=== PATIENT | female | born 1945 | race American Indian/Alaskan Native ===

== ENCOUNTER 2017-10-31 13:17 | Observation (INO) | payer MEDICARE ==
[2017-10-31] MEDS ORDERED: NACL 0.9% 1000 ML 1,000 ML IV ONE (13:39)
[2017-10-31 14:49] LABS: Basophils % (Auto) 0.1 % (0.0-1.8); Eosinophils # (Auto) 0.1 K/mm3 (0.0-0.4); Eosinophils % (Auto) 0.4 % (0.0-4.3); Hematocrit 32.4 % (30.3-42.9); Hemoglobin 10.2 gm/dl (10.1-14.3); Lymphocytes # (Auto) 1.9 K/mm3 (1.2-5.4); Lymphocytes % (Auto) 13.2 % (13.4-35.0); Mean Corpuscular HGB Conc 32 % (30-34); Mean Corpuscular Hemoglobin 28 pg (28-32); Mean Corpuscular Volume 88 fl (79-97); Monocytes # (Auto) 0.6 K/mm3 (0.0-0.8); Monocytes % (Auto) 4.1 % (0.0-7.3); Platelet Count 296 K/mm3 (140-440); Red Blood Count 3.69 M/mm3 (3.65-5.03); Red Cell Distribution Width 14.9 % (13.2-15.2)
[2017-10-31 14:55] LABS: Alanine Aminotransferase 11 units/L (7-56); Albumin 3.8 g/dL (3.9-5); BUN/Creatinine Ratio 30; Blood Urea Nitrogen 27 mg/dL (7-17); Calcium 9.8 mg/dL (8.4-10.2); Hemolysis Index 7; Lipase 21 units/L (13-60)
[2017-10-31 15:03] LABS: INR 0.93 (0.87-1.13)
[2017-10-31 15:04] LABS: Partial Thromboplastin Time 24.2 Sec. (24.2-36.6)
--- NOTE | 2017-10-31 16:20 | Emergency Department Report ---
HPI - General Chief Complaint: GI Bleed Time Seen by Provider: 10/31/17 15:55 - HPI HPI: 72-year-old female presents to the emergency department with a complaint of 4 episodes of rectal bleeding with bowel movements since 9 AM this morning. It is associated with some lower abdominal discomfort. Patient says that she was feeling slightly weak and/or dizzy when she was standing. The stool looked dark at first but has since become more red. She has not taken anything for her symptoms. Presentation. She has a past medical history of arthritis, diabetes, hypertension, hyperlipidemia and does have one previous episode of GI bleeding from about 14 years ago that required a blood transfusion at that time. The patient last had a colonoscopy about 2 years ago with [facility]. Patient also admits to taking a lot of meloxicam over the past month secondary to her arthritis. She denies any fever , chest pain, shortness of breath. No recent travel or sick contacts at home. ED Past Medical Hx - Past Medical History Hx Hypertension: Yes Hx Diabetes: Yes (1994) Hx Arthritis: Yes Additional medical history: elevated cholesterol,rectal bleed with transfusion r /t bleeding polyps - Surgical History Additional Surgical History: hysterectomy - Social History Smoking Status: Never Smoker Substance Use Type: None - Medications Home Medications: Home Medications Medication Instructions Recorded Confirmed Last Taken Type Insulin Detemir [Levemir Flextouch] 30 unit SQ QHS 06/22/15 10/31/17 06/23/15 History metFORMIN [Glucophage] 850 mg PO BID 06/22/15 10/31/17 10/31/17 History Aspirin [Adult Low Dose Aspirin EC] 81 mg PO QDAY 10/31/17 10/31/17 10/31/17 History Atorvastatin Calcium [Lipitor] 80 mg PO QHS 10/31/17 10/31/17 Unknown History Brimonidine Tartrate/Timolol 1 drop OU BID 10/31/17 10/31/17 Unknown History [Combigan 0.2%-0.5% Eye Drops] Insulin Lispro [Humalog Kwikpen 80 unit SQ TID 10/31/17 10/31/17 Unknown History U-100] Latanoprost 0.005% [Xalatan 0.005%] 1 drop OU QPM 10/31/17 10/31/17 Unknown History Lisinopril [Zestril TAB] 2.5 mg PO QDAY 10/31/17 10/31/17 10/31/17 History Meloxicam [Mobic] 7.5 mg PO QDAY 10/31/17 10/31/17 10/31/17 History ED Review of Systems ROS: Stated complaint: RECTAL BLEEDING Other details as noted in HPI Comment: All other systems reviewed and negative Constitutional: denies: chills, fever Eyes: denies: eye pain, eye discharge, vision change ENT: denies: ear pain, throat pain Respiratory: denies: cough, shortness of breath, wheezing Cardiovascular: denies: chest pain, palpitations Gastrointestinal: abdominal pain, other (rectal bleeding) Genitourinary: denies: urgency, dysuria, discharge Musculoskeletal: denies: back pain, joint swelling, arthralgia Skin: denies: rash, lesions Neurological: denies: headache, numbness Physical Exam - Physical Exam Vital Signs: Vital Signs 10/31/17 13:34 Temperature 97.5 F L Pulse Rate 110 H Respiratory 18 Rate Blood Pressure 85/51 O2 Sat by Pulse 99 Oximetry Physical Exam: GENERAL: The patient is well-developed well-nourished. HENT: Normocephalic. Atraumatic. Patient has moist mucous membranes. EYES: Extraocular motions are intact. Pupils equal reactive to light bilaterally. NECK: Supple. Trachea is midline. CHEST/LUNGS: Clear to auscultation. There is no respiratory distress noted. HEART/CARDIOVASCULAR: Regular. There is no tachycardia. There is no murmur. ABDOMEN: Abdomen is soft. Lower abdominal tenderness to palpation. No guarding. Patient has normal bowel sounds. There is no abdominal distention. SKIN: Skin is warm and dry. RECTAL: No visible external hemorrhoids. There is a small amount of gross blood seen when obtaining stool that is confirmed on guaiac testing. NEURO: The patient is awake, alert, and oriented. The patient is cooperative. The patient has no focal neurologic deficits. The patient has normal speech. MUSCULOSKELETAL: There is no tenderness or deformity. There is no limitation range of motion. There is no evidence of acute injury. ED Course Vital Signs 10/31/17 13:34 Temperature 97.5 F L Pulse Rate 110 H Respiratory 18 Rate Blood Pressure 85/51 O2 Sat by Pulse 99 Oximetry - Consultations Consultation #1: I spoke with the form maker plaster trousseau [facility], Dr. turpin, who recommends that the patient be observed overnight and they will do an EGD tomorrow. Patient will be nothing by mouth after midnight and will be started on Protonix 40 mg twice a day. 10/31/17 19:52 ED Medical Decision Making - Lab Data Result diagrams: 10/31/17 14:09 10/31/17 14:09 - EKG Data -: EKG Interpreted by Me EKG shows normal: sinus rhythm, axis (left axis deviation), intervals, QRS complexes (RVH, Q waves to the inferior leads), ST-T waves Rate: normal - EKG Data When compared to previous EKG there are: previous EKG unavailable Interpretation: other (Sinus, left axis deviation, RVH, q waves to inferior leads) - Radiology Data Radiology results: report reviewed PROCEDURE: CT ABDOMEN PELVIS W CON TECHNIQUE: Computerized axial tomography of the abdomen and pelvis was performed after the IV injection of iodinated nonionic contrast. HISTORY: Abd pain COMPARISON: No prior studies are available for comparison. FINDINGS: Lower Lung wilkinson: Small amount of scattered nonspecific ground-glass density visualized. Calcified granuloma seen in the right lower lobe. No focal consolidations effusions or noncalcified masses are seen. Upper Abdomen: The liver, the gallbladder, the adrenal glands, the pancreas and spleen are unremarkable. Kidneys, Ureters and Urinary bladder: No abnormalities are seen. Retroperitoneum: Atherosclerotic changes are seen in the abdominal aorta. No aneurysm is visualized. Nonspecific subcentimeter lymph nodes are seen in the retroperitoneum. No pathologically enlarged lymph nodes are identified. Bowel: Mild to moderate diverticulosis seen left side of the colon without evidence of diverticulitis. Mild diverticulosis seen in the transverse colon. Bowel loops otherwise unremarkable. Normal-appearing appendix visualized in the right lower quadrant directed medially. Reproductive organs: Uterus is surgically absent. No abnormal adnexal masses are seen. Other: There sclerosis and subchondral cyst formation involving SI joints bilaterally suggesting osteoarthritis. No acute bony abnormalities are seen. IMPRESSION: Small amount of nonspecific ground-glass density seen in the lung bases. Mild to moderate colonic diverticulosis without evidence of diverticulitis. Prior hysterectomy. Degenerative changes SI joints. No other abnormalities are seen. Transcribed By: WILL Dictated By: KTIA COON MD Electronically Authenticated By: KITA COON MD Signed Date/Time: 10/31/17 861 - Medical Decision Making Patient presented with 4 episodes of rectal bleeding with bowel movements starting some morning. She says it started off dark black but then turned red. She also has been using meloxicam a lot over the past month for osteoarthritis. Her hemoglobin is 10.2 which does show some anemia but not at a level for transfusion as of yet. The rest of blood work is mostly unremarkable. CT scan of the abdomen and pelvis with IV contrast shows mild to moderate colonic diverticulosis without diverticulitis. Gastroenterology consulted and contacted and they will see the patient tomorrow for probable EGD. Patient nothing by mouth after midnight and on IV Protonix twice daily. Accepted for admission by the hospitalist, Dr. Newman. - Differential Diagnosis diverticulosis, malignancy, hemorrhoids, diverticulitis Critical Care Time: No Critical care attestation.: If time is entered above; I have spent that time in minutes in the direct care of this critically ill patient, excluding procedure time. ED Disposition Clinical Impression: NSAID long-term use GI bleed Qualifiers: GI bleed type/associated pathology: unspecified gastrointestinal hemorrhage type Qualified Code(s): K92.2 - Gastrointestinal hemorrhage, unspecified Anemia Qualifiers: Anemia type: unspecified type Qualified Code(s): D64.9 - Anemia, unspecified Diverticulosis of colon Qualifiers: Diverticulosis bleeding: diverticulosis with bleeding Qualified Code(s): K57.31 - Diverticulosis of large intestine without perforation or abscess with bleeding Disposition: 09 OP ADMIT IP TO THIS HOSP Is pt being admited?: Yes Condition: Fair Referrals: PRIMARY CAREMD [Primary Care Provider] - 3-5 Days Forms: Accompanied Note Time of Disposition: 19:37
--- NOTE | 2017-10-31 19:08 | Cat Scan Report ---
FINAL REPORT PROCEDURE: CT ABDOMEN PELVIS W CON TECHNIQUE: Computerized axial tomography of the abdomen and pelvis was performed after the IV injection of iodinated nonionic contrast. HISTORY: Abd pain COMPARISON: No prior studies are available for comparison. FINDINGS: Lower Lung wilkinson: Small amount of scattered nonspecific ground-glass density visualized. Calcified granuloma seen in the right lower lobe. No focal consolidations effusions or noncalcified masses are seen. Upper Abdomen: The liver, the gallbladder, the adrenal glands, the pancreas and spleen are unremarkable. Kidneys, Ureters and Urinary bladder: No abnormalities are seen. Retroperitoneum: Atherosclerotic changes are seen in the abdominal aorta. No aneurysm is visualized. Nonspecific subcentimeter lymph nodes are seen in the retroperitoneum. No pathologically enlarged lymph nodes are identified. Bowel: Mild to moderate diverticulosis seen left side of the colon without evidence of diverticulitis. Mild diverticulosis seen in the transverse colon. Bowel loops otherwise unremarkable. Normal-appearing appendix visualized in the right lower quadrant directed medially. Reproductive organs: Uterus is surgically absent. No abnormal adnexal masses are seen. Other: There sclerosis and subchondral cyst formation involving SI joints bilaterally suggesting osteoarthritis. No acute bony abnormalities are seen. IMPRESSION: Small amount of nonspecific ground-glass density seen in the lung bases. Mild to moderate colonic diverticulosis without evidence of diverticulitis. Prior hysterectomy. Degenerative changes SI joints. No other abnormalities are seen.
[2017-10-31] MEDS: PROTONIX IV SCH (20:21)
--- NOTE | 2017-10-31 23:04 | History and Physical Report ---
History of Present Illness Date of examination: 10/31/17 Date of admission: 10/31/17 19:37 Chief complaint: Chief complaint Bright blood per rectum since a.m. History of present illness: History of present illness: 72-year-old black female presents to the emergency department with bright red blood per rectum since morning. Started around 9 AM. Had similar episode over 14 years ago and was diagnosed with diverticulosis. Patient does have abdominal discomfort and has been feeling weak and dizzy when she was standing. No exacerbating or relieving factors. Did not take any NSAID. No shortness of breath. Past Medical History Hx Hypertension: Yes Hx Diabetes: Yes (1994) Hx Arthritis: Yes Additional medical history: elevated cholesterol,rectal bleed with transfusion r /t bleeding polyps Surgical History Additional Surgical History: hysterectomy Social History Smoking Status: Never Smoker Substance Use Type: None Family history Hypertension Medications Home Medications: Home Medications Medication Instructions Recorded Confirmed Last Taken Type Insulin Detemir [Levemir Flextouch] 30 unit SQ QHS 06/22/15 10/31/17 06/23/15 History metFORMIN [Glucophage] 850 mg PO BID 06/22/15 10/31/17 10/31/17 History Aspirin [Adult Low Dose Aspirin EC] 81 mg PO QDAY 10/31/17 10/31/17 10/31/17 History Atorvastatin Calcium [Lipitor] 80 mg PO QHS 10/31/17 10/31/17 Unknown History Brimonidine Tartrate/Timolol 1 drop OU BID 10/31/17 10/31/17 Unknown History [Combigan 0.2%-0.5% Eye Drops] Insulin Lispro [Humalog Kwikpen 80 unit SQ TID 10/31/17 10/31/17 Unknown History U-100] Latanoprost 0.005% [Xalatan 0.005%] 1 drop OU QPM 10/31/17 10/31/17 Unknown History Lisinopril [Zestril TAB] 2.5 mg PO QDAY 10/31/17 10/31/17 10/31/17 History Meloxicam [Mobic] 7.5 mg PO QDAY 10/31/17 10/31/17 10/31/17 History Review of Systems ROS: Stated complaint: RECTAL BLEEDING Other details as noted in HPI Comment: All other systems reviewed and negative Constitutional: denies: chills, fever Eyes: denies: eye pain, eye discharge, vision change ENT: denies: ear pain, throat pain Respiratory: denies: cough, shortness of breath, wheezing Cardiovascular: denies: chest pain, palpitations Gastrointestinal: abdominal pain, other (rectal bleeding) Genitourinary: denies: urgency, dysuria, discharge Musculoskeletal: denies: back pain, joint swelling, arthralgia Skin: denies: rash, lesions Neurological: denies: headache, numbness Medications and Allergies Allergies Allergy/AdvReac Type Severity Reaction Status Date / Time No Known Allergies Allergy Verified 06/24/15 09:09 Home Medications Medication Instructions Recorded Confirmed Last Taken Type Insulin Detemir [Levemir Flextouch] 30 unit SQ QHS 06/22/15 10/31/17 06/23/15 History metFORMIN [Glucophage] 850 mg PO BID 06/22/15 10/31/17 10/31/17 History Aspirin [Adult Low Dose Aspirin EC] 81 mg PO QDAY 10/31/17 10/31/17 10/31/17 History Atorvastatin Calcium [Lipitor] 80 mg PO QHS 10/31/17 10/31/17 Unknown History Brimonidine Tartrate/Timolol 1 drop OU BID 10/31/17 10/31/17 Unknown History [Combigan 0.2%-0.5% Eye Drops] Insulin Lispro [Humalog Kwikpen 80 unit SQ TIDAC 10/31/17 10/31/17 Unknown History U-100] Latanoprost 0.005% [Xalatan 0.005%] 1 drop OU QPM 10/31/17 10/31/17 Unknown History Lisinopril [Zestril TAB] 2.5 mg PO QDAY 10/31/17 10/31/17 10/31/17 History Meloxicam [Mobic] 7.5 mg PO QDAY 10/31/17 10/31/17 10/31/17 History Active Meds: Active Medications Pantoprazole Sodium (Protonix) 40 mg IV BID [facility] Last Admin: 10/31/17 20:21 Dose: 40 mg Exam - Constitutional Vitals: Temp Pulse Resp BP Pulse Ox 99.1 F 90 18 102/46 98 10/31/17 21:44 10/31/17 21:44 10/31/17 21:44 10/31/17 21:44 10/31/17 21:44 General appearance: Present: no acute distress, well-nourished - EENT Eyes: Present: PERRL ENT: hearing intact, clear oral mucosa - Neck Neck: Present: supple, normal ROM - Respiratory Respiratory effort: normal Respiratory: bilateral: CTA - Cardiovascular Heart rate: 70 Rhythm: regular Heart Sounds: Present: S1 & S2. Absent: rub, click - Extremities Extremities: pulses symmetrical, No edema Peripheral Pulses: within normal limits - Abdominal General gastrointestinal: Present: soft, non-tender, non-distended, normal bowel sounds Female genitourinary: Present: normal - Rectal Rectal Exam: stool bloody - Integumentary Integumentary: Present: clear, warm, dry - Musculoskeletal Musculoskeletal: gait normal, strength equal bilaterally - Psychiatric Psychiatric: appropriate mood/affect, intact judgment & insight - Neurologic Neurologic: CNII-XII intact, moves all extremities - Allied Health Allied health notes reviewed: nursing, case management Results - Labs CBC & Chem 7: 10/31/17 14:09 10/31/17 14:09 Labs: Laboratory Last Values WBC 14.3 K/mm3 (4.5-11.0) H 10/31/17 14:09 RBC 3.69 M/mm3 (3.65-5.03) 10/31/17 14:09 Hgb 10.2 gm/dl (10.1-14.3) 10/31/17 14:09 Hct 32.4 % (30.3-42.9) 10/31/17 14:09 MCV 88 fl (79-97) 10/31/17 14:09 MCH 28 pg (28-32) 10/31/17 14:09 MCHC 32 % (30-34) 10/31/17 14:09 RDW 14.9 % (13.2-15.2) 10/31/17 14:09 Plt Count 296 K/mm3 (140-440) 10/31/17 14:09 Lymph % (Auto) 13.2 % (13.4-35.0) L 10/31/17 14:09 [place] % (Auto) 4.1 % (0.0-7.3) 10/31/17 14:09 Eos % (Auto) 0.4 % (0.0-4.3) 10/31/17 14:09 Baso % (Auto) 0.1 % (0.0-1.8) 10/31/17 14:09 Lymph # 1.9 K/mm3 (1.2-5.4) 10/31/17 14:09 [place] # 0.6 K/mm3 (0.0-0.8) 10/31/17 14:09 Eos # 0.1 K/mm3 (0.0-0.4) 10/31/17 14:09 Baso # 0.0 K/mm3 (0.0-0.1) 10/31/17 14:09 Seg Neutrophils % 82.2 % (40.0-70.0) H 10/31/17 14:09 Seg Neutrophils # 11.8 K/mm3 (1.8-7.7) H 10/31/17 14:09 PT 12.9 Sec. (12.2-14.9) 10/31/17 14:09 INR 0.93 (0.87-1.13) 10/31/17 14:09 APTT 24.2 Sec. (24.2-36.6) 10/31/17 14:09 Sodium 139 mmol/L (137-145) 10/31/17 14:09 Potassium 4.8 mmol/L (3.6-5.0) 10/31/17 14:09 Chloride 101.1 mmol/L (98-107) 10/31/17 14:09 Carbon Dioxide 23 mmol/L (22-30) 10/31/17 14:09 Anion Gap 20 mmol/L 10/31/17 14:09 BUN 27 mg/dL (7-17) H 10/31/17 14:09 Creatinine 0.9 mg/dL (0.7-1.2) 10/31/17 14:09 Estimated GFR > 60 ml/min 10/31/17 14:09 BUN/Creatinine Ratio 30 % 10/31/17 14:09 Glucose 255 mg/dL (65-100) H 10/31/17 14:09 Calcium 9.8 mg/dL (8.4-10.2) 10/31/17 14:09 Total Bilirubin 0.60 mg/dL (0.1-1.2) 10/31/17 14:09 AST 13 units/L (5-40) 10/31/17 14:09 ALT 11 units/L (7-56) 10/31/17 14:09 Alkaline Phosphatase 79 units/L (35-129) 10/31/17 14:09 Total Protein 7.2 g/dL (6.3-8.2) 10/31/17 14:09 Albumin 3.8 g/dL (3.9-5) L 10/31/17 14:09 Albumin/Globulin Ratio 1.1 % 10/31/17 14:09 Lipase 21 units/L (13-60) 10/31/17 14:09 Blood Type O NEGATIVE 10/31/17 14:09 Antibody Screen Negative 10/31/17 14:09 - Imaging and Cardiology EKG: report reviewed (normal sinus rhythm heart rate of 93/m no acute ST-T wave changes) Assessment and Plan Advance Directives: Yes (full code) VTE prophylaxis?: Mechanical Plan of care discussed with patient/family: Yes - Patient Problems (1) Lower GI bleed Current Visit: Yes Status: Acute Plan to address problem: We will keep the patient nothing by mouth GI consult Colonoscopy Transfuse blood if necessary Monitor hemoglobin and hematocrit every 6 hours (2) Insulin dependent diabetes mellitus Current Visit: Yes Status: Acute Plan to address problem: Coverage only Check hemoglobin A1c (3) Hypertension Current Visit: Yes Status: Chronic Qualifiers: Hypertension type: essential hypertension Qualified Code(s): I10 - Essential (primary) hypertension Plan to address problem: Patient on a very small dose of lisinopril. We'll hold it. (4) Glaucoma Current Visit: Yes Status: Chronic Qualifiers: Glaucoma type: open-angle Plan to address problem: Continue Xalatan eyedrops (5) DVT prophylaxis Current Visit: Yes Status: Acute Plan to address problem: On SCDs only
[2017-10-31] MEDS ORDERED: ZOFRAN IV PRN (23:16)
[2017-10-31] MEDS ORDERED: SODIUM CHLORIDE FLUSH SYRINGE 10 ML IV PRN (23:16)
[2017-10-31] MEDS ORDERED: MORPHINE IV PRN (23:16)
[2017-10-31] MEDS ORDERED: NACL 0.9% 1000 ML 1,000 ML IV SCH (23:45)
[2017-11-01 00:08] LABS: Hematocrit 24.6 % (30.3-42.9); Hemoglobin 8.5 gm/dl (10.1-14.3)
[2017-11-01 06:42] LABS: Basophils % (Auto) 0.2 % (0.0-1.8); Eosinophils # (Auto) 0.1 K/mm3 (0.0-0.4); Eosinophils % (Auto) 0.8 % (0.0-4.3); Hematocrit 26.4 % (30.3-42.9); Hemoglobin 8.6 gm/dl (10.1-14.3); Lymphocytes # (Auto) 2.9 K/mm3 (1.2-5.4); Lymphocytes % (Auto) 34.8 % (13.4-35.0); Mean Corpuscular HGB Conc 33 % (30-34); Mean Corpuscular Hemoglobin 28 pg (28-32); Mean Corpuscular Volume 87 fl (79-97); Monocytes # (Auto) 0.5 K/mm3 (0.0-0.8); Monocytes % (Auto) 6.6 % (0.0-7.3); Platelet Count 226 K/mm3 (140-440); Red Blood Count 3.05 M/mm3 (3.65-5.03)
[2017-11-01 07:01] LABS: Alanine Aminotransferase 9 units/L (7-56); Albumin 3.6 g/dL (3.9-5); BUN/Creatinine Ratio 32; Blood Urea Nitrogen 29 mg/dL (7-17); Calcium 9.3 mg/dL (8.4-10.2); Hemolysis Index 7
--- NOTE | 2017-11-01 07:28 | Progress Note ---
Assessment and Plan Assessment and plan: 72-year-old female with past medical history significant for diabetes mellitus, hypertension, glaucoma presented to the emergency department with complaints of passing of bright red blood per rectum, associated with dizziness. patient had similar episodes previously. Lower GI bleeding - Hemoglobin is dropped from 10.2 - 8.6 - We'll continue to monitor, transfuse as needed - CT abdomen showed diverticulosis - GI consulted, EGD/colonoscopy tomorrow - Clear liquid diet for now Insulin-dependent diabetes mellitus - Sliding scale insulin Hypertension - Blood pressure is on the low side of normal, no BP medications needed for now DVT prophylaxis - SCDs because of GI bleeding Disposition - Continue inpatient care, gentle have EGD and colonoscopy tomorrow History Interval history: No nursing issues overnight, dizziness subsided, no active GI bleeding. Hospitalist Physical - Physical exam Narrative exam: Not in cardiopulmonary distress. The patient is obese. Vital signs as documented. Head exam is unremarkable. No scleral icterus . Neck is without jugular venous distension, thyromegaly, or carotid bruits. Lungs are clear to auscultation. Cardiac exam reveals regular rate and Rhythm. First and second heart sounds normal. No murmurs, rubs or gallops. Abdominal exam reveals normal bowel sounds, no masses, no organomegaly and no aortic enlargement. Extremities are nonedematous and both femoral and pedal pulses are normal. 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 No focal weakness. - Constitutional Vitals: Temp Pulse Resp BP Pulse Ox 98.3 F 69 20 113/53 100 11/01/17 02:03 11/01/17 02:03 11/01/17 02:03 11/01/17 02:03 11/01/17 02:03 General appearance: Present: no acute distress, well-nourished Results - Labs CBC & Chem 7: 11/01/17 10:23 11/01/17 05:33 Labs: Laboratory Last Values WBC 8.3 K/mm3 (4.5-11.0) 11/01/17 05:33 RBC 3.05 M/mm3 (3.65-5.03) L 11/01/17 05:33 Hgb 8.6 gm/dl (10.1-14.3) L 11/01/17 05:33 Hct 26.4 % (30.3-42.9) L 11/01/17 05:33 MCV 87 fl (79-97) 11/01/17 05:33 MCH 28 pg (28-32) 11/01/17 05:33 MCHC 33 % (30-34) 11/01/17 05:33 RDW 15.0 % (13.2-15.2) 11/01/17 05:33 Plt Count 226 K/mm3 (140-440) 11/01/17 05:33 Lymph % (Auto) 34.8 % (13.4-35.0) 11/01/17 05:33 [place] % (Auto) 6.6 % (0.0-7.3) 11/01/17 05:33 Eos % (Auto) 0.8 % (0.0-4.3) 11/01/17 05:33 Baso % (Auto) 0.2 % (0.0-1.8) 11/01/17 05:33 Lymph # 2.9 K/mm3 (1.2-5.4) 11/01/17 05:33 [place] # 0.5 K/mm3 (0.0-0.8) 11/01/17 05:33 Eos # 0.1 K/mm3 (0.0-0.4) 11/01/17 05:33 Baso # 0.0 K/mm3 (0.0-0.1) 11/01/17 05:33 Seg Neutrophils % 57.6 % (40.0-70.0) 11/01/17 05:33 Seg Neutrophils # 4.8 K/mm3 (1.8-7.7) 11/01/17 05:33 PT 12.9 Sec. (12.2-14.9) 10/31/17 14:09 INR 0.93 (0.87-1.13) 10/31/17 14:09 APTT 24.2 Sec. (24.2-36.6) 10/31/17 14:09 Sodium 143 mmol/L (137-145) 11/01/17 05:33 Potassium 4.6 mmol/L (3.6-5.0) 11/01/17 05:33 Chloride 104.8 mmol/L (98-107) 11/01/17 05:33 Carbon Dioxide 25 mmol/L (22-30) 11/01/17 05:33 Anion Gap 18 mmol/L 11/01/17 05:33 BUN 29 mg/dL (7-17) H 11/01/17 05:33 Creatinine 0.9 mg/dL (0.7-1.2) 11/01/17 05:33 Estimated GFR > 60 ml/min 11/01/17 05:33 BUN/Creatinine Ratio 32 % 11/01/17 05:33 Glucose 182 mg/dL (65-100) H 11/01/17 05:33 POC Glucose 148 (70-105) H 11/01/17 06:46 Hemoglobin A1c 9.1 % (4-6) H 10/31/17 23:46 Calcium 9.3 mg/dL (8.4-10.2) 11/01/17 05:33 Total Bilirubin 0.30 mg/dL (0.1-1.2) 11/01/17 05:33 AST 11 units/L (5-40) 11/01/17 05:33 ALT 9 units/L (7-56) 11/01/17 05:33 Alkaline Phosphatase 68 units/L (35-129) 11/01/17 05:33 Total Protein 6.0 g/dL (6.3-8.2) L 11/01/17 05:33 Albumin 3.6 g/dL (3.9-5) L 11/01/17 05:33 Albumin/Globulin Ratio 1.5 % 11/01/17 05:33 Lipase 21 units/L (13-60) 10/31/17 14:09 Blood Type O NEGATIVE 10/31/17 14:09 Antibody Screen Negative 10/31/17 14:09 Her hemoglobin dropped from 10.2 yesterday -8.6 this morning
--- NOTE | 2017-11-01 10:03 | Gastroenterology Consultation ---
<KARRIE RODRIGUEZ - Last Filed: 11/01/17 10:11> History of Present Illness - Reason for Consult Consult date: 11/01/17 GI bleed Requesting physician: VICENTA MATSON - History of Present Illness Patient is a 72 y/o female with PMH of arthritis, DM, HTN, HLD, and glaucoma who presented to ED with c/o rectal bleeding with associated weakness and dizziness. She reports multiple BMs yesterday with dark stool at first that later turned to a brighter red bloody color. This morning patient was resting in bed w/o acute distress. Has had no active signs of bleeding since around 4pm yesterday. No hematemesis. Admits to some mild lower abd cramping that is not improving. Denies fever, wt loss, CP, SOB, N/V, dysphagia, or diarrhea. Takes Meloxicam and ASA daily at home. No hx of PUD or liver disease. Had an episode of GI bleeding thought to be due to a colon polyp approximately 15 years ago per patient. Last colonoscopy 2 years ago revealed polyps. Past History Past Medical History: arthritis, diabetes, hypertension, hyperlipidemia, other ( glaucoma) Past Surgical History: hysterectomy Social history: denies: smoking, alcohol abuse Family history: hypertension Medications and Allergies Allergies Allergy/AdvReac Type Severity Reaction Status Date / Time No Known Allergies Allergy Verified 06/24/15 09:09 Home Medications Medication Instructions Recorded Confirmed Last Taken Type Insulin Detemir [Levemir Flextouch] 30 unit SQ QHS 06/22/15 10/31/17 06/23/15 History metFORMIN [Glucophage] 850 mg PO BID 06/22/15 10/31/17 10/31/17 History Aspirin [Adult Low Dose Aspirin EC] 81 mg PO QDAY 10/31/17 10/31/17 10/31/17 History Atorvastatin Calcium [Lipitor] 80 mg PO QHS 10/31/17 10/31/17 Unknown History Brimonidine Tartrate/Timolol 1 drop OU BID 10/31/17 10/31/17 Unknown History [Combigan 0.2%-0.5% Eye Drops] Insulin Lispro [Humalog Kwikpen 80 unit SQ TIDAC 10/31/17 10/31/17 Unknown History U-100] Latanoprost 0.005% [Xalatan 0.005%] 1 drop OU QPM 10/31/17 10/31/17 Unknown History Lisinopril [Zestril TAB] 2.5 mg PO QDAY 10/31/17 10/31/17 10/31/17 History Meloxicam [Mobic] 7.5 mg PO QDAY 10/31/17 10/31/17 10/31/17 History Active Meds: Active Medications Acetaminophen (Tylenol) 650 mg PO Q4H PRN PRN Reason: Pain MILD(1-3)/Fever >100.5/MUÑOZ Sodium Chloride (Nacl 0.9% 1000 Ml) 1,000 mls @ 100 mls/hr IV DIRECT CHAO Insulin Human Lispro (Humalog) 0 unit SUB-Q Q6HR CHAO; Protocol Morphine Sulfate (Morphine) 2 mg IV Q4H PRN PRN Reason: Pain, Moderate (4-6) Ondansetron HCl (Zofran) 4 mg IV Q8H PRN PRN Reason: Nausea And Vomiting Pantoprazole Sodium (Protonix) 40 mg IV BID [facility] Last Admin: 10/31/17 20:21 Dose: 40 mg Sodium Chloride (Sodium Chloride Flush Syringe 10 Ml) 10 ml IV BID CHAO Sodium Chloride (Sodium Chloride Flush Syringe 10 Ml) 10 ml IV PRN PRN PRN Reason: LINE FLUSH Review of Systems - Review of Systems All systems: negative Gastrointestinal: other (dark stools mixed with brigh red blood) Exam - Constitutional Vital Signs: Temp Pulse Resp BP Pulse Ox 98.5 F 70 18 105/58 97 11/01/17 07:54 11/01/17 07:54 11/01/17 07:54 11/01/17 07:59 11/01/17 07:54 General appearance: no acute distress - EENT Eyes: PERRL, EOM intact ENT: hearing intact - Respiratory Respiratory: bilateral: CTA - Cardiovascular Rhythm: regular Heart Sounds: Present: S1 & S2 - Gastrointestinal General gastrointestinal: Present: soft, non-tender, non-distended, normal bowel sounds Rectal Exam: other (dark brown stool) - Neurologic Neurological: alert and oriented x3 - Labs CBC & Chem 7: 11/01/17 05:33 11/01/17 05:33 Lab Results: Laboratory Results - last 24 hr 10/31/17 10/31/17 10/31/17 14:09 14:09 14:09 WBC 14.3 H RBC 3.69 Hgb 10.2 Hct 32.4 MCV 88 MCH 28 MCHC 32 RDW 14.9 Plt Count 296 Lymph % (Auto) 13.2 L [place] % (Auto) 4.1 Eos % (Auto) 0.4 Baso % (Auto) 0.1 Lymph # 1.9 [place] # 0.6 Eos # 0.1 Baso # 0.0 Seg Neutrophils % 82.2 H Seg Neutrophils # 11.8 H PT 12.9 INR 0.93 APTT 24.2 Sodium 139 Potassium 4.8 Chloride 101.1 Carbon Dioxide 23 Anion Gap 20 BUN 27 H Creatinine 0.9 Estimated GFR > 60 BUN/Creatinine Ratio 30 Glucose 255 H POC Glucose Hemoglobin A1c Calcium 9.8 Total Bilirubin 0.60 AST 13 ALT 11 Alkaline Phosphatase 79 Total Protein 7.2 Albumin 3.8 L Albumin/Globulin Ratio 1.1 Lipase 21 Blood Type Antibody Screen 10/31/17 10/31/17 10/31/17 14:09 23:46 23:46 WBC RBC Hgb 8.5 L Hct 24.6 L D MCV MCH MCHC RDW Plt Count Lymph % (Auto) [place] % (Auto) Eos % (Auto) Baso % (Auto) Lymph # [place] # Eos # Baso # Seg Neutrophils % Seg Neutrophils # PT INR APTT Sodium Potassium Chloride Carbon Dioxide Anion Gap BUN Creatinine Estimated GFR BUN/Creatinine Ratio Glucose POC Glucose Hemoglobin A1c 9.1 H Calcium Total Bilirubin AST ALT Alkaline Phosphatase Total Protein Albumin Albumin/Globulin Ratio Lipase Blood Type O NEGATIVE Antibody Screen Negative 11/01/17 11/01/17 11/01/17 05:33 05:33 06:46 WBC 8.3 RBC 3.05 L Hgb 8.6 L Hct 26.4 L MCV 87 MCH 28 MCHC 33 RDW 15.0 Plt Count 226 Lymph % (Auto) 34.8 [place] % (Auto) 6.6 Eos % (Auto) 0.8 Baso % (Auto) 0.2 Lymph # 2.9 [place] # 0.5 Eos # 0.1 Baso # 0.0 Seg Neutrophils % 57.6 Seg Neutrophils # 4.8 PT INR APTT Sodium 143 Potassium 4.6 Chloride 104.8 Carbon Dioxide 25 Anion Gap 18 BUN 29 H Creatinine 0.9 Estimated GFR > 60 BUN/Creatinine Ratio 32 Glucose 182 H POC Glucose 148 H Hemoglobin A1c Calcium 9.3 Total Bilirubin 0.30 AST 11 ALT 9 Alkaline Phosphatase 68 Total Protein 6.0 L Albumin 3.6 L Albumin/Globulin Ratio 1.5 Lipase Blood Type Antibody Screen Assessment and Plan 1.GI bleed -INR 0.93 -HGB 8.6 trending down -continue to monitor H/H and transfuse as needed -hold blood thinning medications -currently HD stable -multiple BMs yesterday with dark and bright red blood- no active signs of bleeding this am -CT showed diverticulosis w/o diverticulitis -etiology unclear- possible ulcer vs diverticular vs other -will schedule for EGD/colonoscopy in am -clear liquids today then NPO after MN -continue PPI and supportive care -will follow <EUSEBIO DYSON - Last Filed: 11/01/17 11:13> Medications and Allergies Active Meds: Active Medications Acetaminophen (Tylenol) 650 mg PO Q4H PRN PRN Reason: Pain MILD(1-3)/Fever >100.5/MUÑOZ Sodium Chloride (Nacl 0.9% 1000 Ml) 1,000 mls @ 100 mls/hr IV DIRECT CHAO Last Admin: 11/01/17 11:00 Dose: 100 mls/hr Insulin Human Lispro (Humalog) 0 unit SUB-Q Q6HR CHAO; Protocol Morphine Sulfate (Morphine) 2 mg IV Q4H PRN PRN Reason: Pain, Moderate (4-6) Ondansetron HCl (Zofran) 4 mg IV Q8H PRN PRN Reason: Nausea And Vomiting Pantoprazole Sodium (Protonix) 40 mg IV BID CHAO Last Admin: 11/01/17 11:01 Dose: 40 mg Polyethylene Glycol/Electrolytes (Golytely) 4,000 ml PO ONCE ONE Stop: 11/01/17 12:01 Sodium Chloride (Sodium Chloride Flush Syringe 10 Ml) 10 ml IV BID CHAO Sodium Chloride (Sodium Chloride Flush Syringe 10 Ml) 10 ml IV PRN PRN PRN Reason: LINE FLUSH Exam - Constitutional Vital Signs: Temp Pulse Resp BP Pulse Ox 98.5 F 70 18 105/58 97 11/01/17 07:54 11/01/17 07:54 11/01/17 07:54 11/01/17 07:59 11/01/17 07:54 - Labs CBC & Chem 7: 11/01/17 10:23 11/01/17 05:33 Lab Results: Laboratory Results - last 24 hr 10/31/17 10/31/17 10/31/17 14:09 14:09 14:09 WBC 14.3 H RBC 3.69 Hgb 10.2 Hct 32.4 MCV 88 MCH 28 MCHC 32 RDW 14.9 Plt Count 296 Lymph % (Auto) 13.2 L [place] % (Auto) 4.1 Eos % (Auto) 0.4 Baso % (Auto) 0.1 Lymph # 1.9 [place] # 0.6 Eos # 0.1 Baso # 0.0 Seg Neutrophils % 82.2 H Seg Neutrophils # 11.8 H PT 12.9 INR 0.93 APTT 24.2 Sodium 139 Potassium 4.8 Chloride 101.1 Carbon Dioxide 23 Anion Gap 20 BUN 27 H Creatinine 0.9 Estimated GFR > 60 BUN/Creatinine Ratio 30 Glucose 255 H POC Glucose Hemoglobin A1c Calcium 9.8 Total Bilirubin 0.60 AST 13 ALT 11 Alkaline Phosphatase 79 Total Protein 7.2 Albumin 3.8 L Albumin/Globulin Ratio 1.1 Lipase 21 Blood Type Antibody Screen 10/31/17 10/31/17 10/31/17 14:09 23:46 23:46 WBC RBC Hgb 8.5 L Hct 24.6 L D MCV MCH MCHC RDW Plt Count Lymph % (Auto) [place] % (Auto) Eos % (Auto) Baso % (Auto) Lymph # [place] # Eos # Baso # Seg Neutrophils % Seg Neutrophils # PT INR APTT Sodium Potassium Chloride Carbon Dioxide Anion Gap BUN Creatinine Estimated GFR BUN/Creatinine Ratio Glucose POC Glucose Hemoglobin A1c 9.1 H Calcium Total Bilirubin AST ALT Alkaline Phosphatase Total Protein Albumin Albumin/Globulin Ratio Lipase Blood Type O NEGATIVE Antibody Screen Negative 11/01/17 11/01/17 11/01/17 05:33 05:33 06:46 WBC 8.3 RBC 3.05 L Hgb 8.6 L Hct 26.4 L MCV 87 MCH 28 MCHC 33 RDW 15.0 Plt Count 226 Lymph % (Auto) 34.8 [place] % (Auto) 6.6 Eos % (Auto) 0.8 Baso % (Auto) 0.2 Lymph # 2.9 [place] # 0.5 Eos # 0.1 Baso # 0.0 Seg Neutrophils % 57.6 Seg Neutrophils # 4.8 PT INR APTT Sodium 143 Potassium 4.6 Chloride 104.8 Carbon Dioxide 25 Anion Gap 18 BUN 29 H Creatinine 0.9 Estimated GFR > 60 BUN/Creatinine Ratio 32 Glucose 182 H POC Glucose 148 H Hemoglobin A1c Calcium 9.3 Total Bilirubin 0.30 AST 11 ALT 9 Alkaline Phosphatase 68 Total Protein 6.0 L Albumin 3.6 L Albumin/Globulin Ratio 1.5 Lipase Blood Type Antibody Screen 11/01/17 10:23 WBC RBC Hgb 8.3 L Hct 25.1 L MCV MCH MCHC RDW Plt Count Lymph % (Auto) [place] % (Auto) Eos % (Auto) Baso % (Auto) Lymph # [place] # Eos # Baso # Seg Neutrophils % Seg Neutrophils # PT INR APTT Sodium Potassium Chloride Carbon Dioxide Anion Gap BUN Creatinine Estimated GFR BUN/Creatinine Ratio Glucose POC Glucose Hemoglobin A1c Calcium Total Bilirubin AST ALT Alkaline Phosphatase Total Protein Albumin Albumin/Globulin Ratio Lipase Blood Type Antibody Screen Assessment and Plan Pt seen and examined. Agree with note by Karrie Rodriguez. Pt presenting with anemia, symptoms of overt bleeding (does not seem active) and nsaid use. will plan for egd/colonoscopy tomorrow.
[2017-11-01 10:55] LABS: Hematocrit 25.1 % (30.3-42.9); Hemoglobin 8.3 gm/dl (10.1-14.3)
[2017-11-01] MEDS: NACL 0.9% 1000 ML 1,000 ML IV SCH ×2 (11:00→21:38)
[2017-11-01] MEDS: PROTONIX IV SCH ×2 (11:01→21:38)
[2017-11-01] MEDS: HumaLOG SUB-Q SCH (11:44)
[2017-11-01] MEDS ORDERED: GOLYTELY PO ONE (12:00)
[2017-11-01] MEDS: SODIUM CHLORIDE FLUSH SYRINGE 10 ML IV SCH ×2 (12:20→23:33)
[2017-11-02] MEDS: HumaLOG SUB-Q SCH ×2 (00:05→12:36)
[2017-11-02] MEDS: TYLENOL PO PRN ×2 (00:20→11:16)
[2017-11-02] MEDS: NACL 0.9% 1000 ML 1,000 ML IV SCH ×2 (08:20→11:29)
--- NOTE | 2017-11-02 08:24 | Anesthesia Consultation ---
Anesthesia Consult and Med Hx Date of service: 11/02/17 - Airway Anesthetic Teeth Evaluation: Good ROM Head & Neck: Adequate Mental/Hyoid Distance: Adequate Mallampati Class: Class II Intubation Access Assessment: Probably Good - Pulmonary Exam CTA: Yes - Cardiac Exam Cardiac Exam: RRR - Pre-Operative Health Status ASA Pre-Surgery Classification: ASA2 Proposed Anesthetic Plan: MAC - Cardiovascular System Hx Hypertension: Yes - Endocrine Hx Non-Insulin Dependent Diabetes: Yes - Hematic Hx Anemia: Yes - Additional Comments Anesthesia Medical History Comments: goiter
--- NOTE | 2017-11-02 08:24 | Anesthesia Day of Surgery ---
Anesthesia Day of Surgery - Day of Surgery Patient Examined: Yes Patient H&P Reviewed: Yes Patient is NPO: Yes
[2017-11-02] MEDS ORDERED: WATER FOR IRRIG STERILE IR ONE (08:30)
[2017-11-02] MEDS ORDERED: XYLOCAINE MPF 2% ONE (08:30)
[2017-11-02] MEDS ORDERED: DIPRIVAN 10 MG/ML IV ONE ×2 (08:47)
--- NOTE | 2017-11-02 09:19 | Post Operative Note ---
Pre-op diagnosis: anemia, gi bleed Post-op diagnosis: same (egd: normal; colonoscopy: diverticulosis, internal hemorrhoids, fair prep) Findings: EGD: unremarkable Colonoscopy: few scattered diverticula, internal hemorrhoids Procedure: 1. EGD 2. Colonoscopy Anesthesia: MAC Surgeon: EUSEBIO DYSON Estimated blood loss: none Pathology: none Condition: stable Disposition: floor
--- NOTE | 2017-11-02 09:25 | Operative Report ---
Operative Report Operative Report: Esophagogastroduodenoscopy Procedure Note Date of procedure: 11/02/2017 Endoscopist: Rian Givens Pre-op diagnosis: Anemia, GI bleed Post-op diagnosis: Unremarkable upper endoscopy Anesthesia: MAC Complications: No immediate complications Estimated blood loss: normal Procedure: After consent was obtained, the patient was placed in the left lateral decubitus position. The fujinon endoscope was inserted into the patient 's mouth under direct vision, and advanced to the 2nd portion of duodenum without difficulty. The patient tolerated the procedure well. The views of the mucosa were good. Patient's vital signs were monitored continuously throughout the procedure. Findings: Normal esophagus Normal stomach Normal Duodenum No source of anemia or possible gi bleeding seen during upper endoscopy Impression: 1. Unremarkable upper endoscopy Recommendations: -colonoscopy to follow
--- NOTE | 2017-11-02 09:29 | Operative Report ---
Operative Report Operative Report: Colonoscopy Procedure Note Date of procedure: 11/02/2017 Endoscopist: Rian Givens Pre-op diagnosis: Anemia, GI bleed Post-op diagnosis: Diverticulosis, internal hemorrhoids Anesthesia: MAC Complications: No immediate complications Estimated blood loss: None Procedure: After consent was obtained, the patient was placed in the left lateral decubitus position. The fujinon colonoscope was inserted into the patient's rectum under direct vision, and advanced to the cecum without difficulty. The patient tolerated the procedure well. The views of the mucosa were fair. The quality of prep was fair. The patient's vital signs were monitored continuously throughout the procedure. Findings: There were a few scattered diverticula in the colon. Internal hemorrhoids were visualized on retroflexion view. Otherwise, the colon appeared normal. Impression: 1. Diverticulosis 2. Internal hemorrhoids No blood or high risk bleeding lesions seen during the procedure. Suspect possible diveticular source of bleeding (hemorrhoids also possible) but no bleeding during procedure. Recommendations: -restart diet -high fiber diet daily -can be discharged from gi stand point if no further signs of bleeding and labs remain stable.
[2017-11-02] MEDS: PROTONIX IV SCH (11:16)
--- NOTE | 2017-11-02 11:20 | Discharge Summary ---
Providers - Providers Date of Admission: 10/31/17 19:37 Attending physician: MARY SOMMERS MD 10/31/17 19:35 Consult to Physician [CONS] Routine Comment: Dr. Granda spoke with Dr. Bedoya @ [id number] Consulting Provider: LINSEY BEDOYA Physician Instructions: Reason For Exam: GI bleed Primary care physician: [employer] Hospitalization Reason for admission: Lower GI bleed Condition: Stable Pertinent studies: EGD normal findings Colonoscopy significant for diverticulosis Hospital course: 72-year-old female with past medical history significant for diabetes mellitus, hypertension, glaucoma presented to the emergency department with complaints of passing of bright red blood per rectum, associated with dizziness. patient had similar episodes previously. Patient was admitted to the floor was given IV fluids and dizziness resolved. Hemoglobin and hematocrit was monitored, on admission it was 10.2 subsequently went down to 8.3. Patient didn't have any further bleeding and no further decrease in her hemoglobin. GI was consulted and EGD and colonoscopy was done, findings were diverticulosis, no active bleeding. Patient discharged home in a stable condition with advice to stop taking NSAIDs. Disposition: - TO HOME OR SELFCARE Time spent for discharge: 31 minutes - Discharge Diagnoses (1) Internal hemorrhoids Status: Chronic (2) Diverticulosis of colon Status: Chronic Qualifiers: Diverticulosis bleeding: diverticulosis with bleeding Qualified Code(s): K57.31 - Diverticulosis of large intestine without perforation or abscess with bleeding (3) GI bleed Status: Acute Qualifiers: GI bleed type/associated pathology: unspecified gastrointestinal hemorrhage type Qualified Code(s): K92.2 - Gastrointestinal hemorrhage, unspecified (4) Anemia Status: Acute Qualifiers: Anemia type: unspecified type Qualified Code(s): D64.9 - Anemia, unspecified (5) NSAID long-term use Status: Acute (6) Insulin dependent diabetes mellitus Status: Acute Core Measure Documentation - Palliative Care Palliative Care/ Comfort Measures: Not Applicable - Core Measures Any of the following diagnoses?: none Exam - Physical Exam Narrative exam: Not in cardiopulmonary distress. The patient is obese. Vital signs as documented. Head exam is unremarkable. No scleral icterus . Neck is without jugular venous distension, thyromegaly, or carotid bruits. Lungs are clear to auscultation. Cardiac exam reveals regular rate and Rhythm. First and second heart sounds normal. No murmurs, rubs or gallops. Abdominal exam reveals normal bowel sounds, no masses, no organomegaly and no aortic enlargement. Extremities are nonedematous and both femoral and pedal pulses are normal. CREATIVE STRATEGIST: Alert and oriented 3. No focal weakness. - Constitutional Vitals: Temp Pulse Resp BP Pulse Ox 97.7 F 73 14 127/49 100 11/02/17 09:12 11/02/17 09:42 11/02/17 09:42 11/02/17 09:42 11/02/17 09:42 Plan Diet: other (High fiber diet) Follow up with: PRIMARY CARE, [Primary Care Provider] - 3-5 Days Forms: Accompanied Note
[2017-11-02] MEDS: SODIUM CHLORIDE FLUSH SYRINGE 10 ML IV SCH (11:33)
[2017-11-02 15:03] VITALS: BP 145/63
[2017-11-02] MEDS ORDERED: PROTONIX PO SCH (22:00)
== END 2017-11-02 16:25 | disposition home or self-care (01) ==
LOC: ED 13:17 → 2B-ACE 19:37
PROVIDERS: ADMIT Internal Medicine; ATTEND Internal Medicine
DX: K92.2 Gastrointestinal hemorrhage, unspecified (principal); D64.9 Anemia, unspecified; E11.39 Type 2 diabetes mellitus with other diabetic ophthalmic complication; H40.9 Unspecified glaucoma; M19.90 Unspecified osteoarthritis, unspecified site; Z79.1 Long term (current) use of non-steroidal anti-inflammatories (NSAID)
CPT/HCPCS: 36415; 43235; 45378; 74177; 80053; 82962; 83036; 83690; 85014; 85018; 85025; 85610; 85730; 86850; 86900; 86901; 93005; 93010; 96372; 96374; 96376; 99285; C9113; G0378; J2704; J7030; Q9967; J1815